=== PATIENT | female | born 1975 | race Two or more races ===

== ENCOUNTER 2024-12-17 13:05 | Inpatient (IN) | payer OTHER ==
[~2024-12-17] VITALS: Ht 157.5 cm; Wt 98.1 kg
[2024-12-17] VITALS (12 sets, daily range): BP systolic 105–135; BP diastolic 25–62; PULSE 89–105; RESP 22–41; TEMP 93.3–96.1; O2SAT 97–100
[~2024-12-17 13:05] MED LIST: HYDR-4798 PO; LISI20TA56 PO; METF-372 PO; ROSU20TA56 PO; TRAZ-227 PO; VENL150C58 PO; VENL75CA78 PO
--- NOTE | 2024-12-17 14:06 | ED.PDOC ---
Altered Mental Status HPI Comments HPI: 49 y/o F, BIBA with PMHX of DM and HTN presents to the ED for CC of ALOC / Hyperglycemia. EMS reports, patient is coming from home where she has been altered and confused a day. However she has been not eating and drinking and not taking her medications for the last four days. EMS states, that patient currently complains of left arm pain and all over body-pain. Patient denies any fall or trauma or injury. EMS, relays patient's blood sugar read HIGH on glucometer. No other PMHX, symptoms, or modifiers obtainable at this time due to patient being A&Ox3. VITALS: Temp: 92.8 AXILLARY, 92.7 ORAL BP: 130'S SYSTOLIC HR:100 RR:30 SPO2:100 Past medical history: DM, HTN Past surgical history: Denies Any Medications: Insulin, Metformin HPI: Poor Historian. Past Medical History: Past Surgical History: REVIEW OF SYSTEMS: CONSTITUTIONAL: Denies acute: fever, diaphoresis, chills, HEAD: Denies acute: headache, photophobia Eyes: Denies acute: Double vision, vision loss, eye pain, eye discharge. EARS: Denies acute: tinnitus, hearing loss, ear discharge, ear pain, THROAT: Denies acute: sore throat, swelling, difficulty swallowing , pain with swallowing, change in voice. NECK: Denies acute: neck pain, neck swelling, stiff neck. HEART: Denies acute : chest pain, palpitations, LUNGS: Denies acute: SOB, wheezing, cough, hemoptysis ABDOMEN: Denies acute: abdominal pain, Nausea, Vomiting, diarrhea, melena , hematemesis, hematochezia SKIN: Denies acute: rash, redness, lesions, itchiness. EXTREMITIES: Denies acute: calf pain, numbness, tingling, weakness, Denies acute: Low back pain. Neuro: Denies acute: focal neurological deficit, motor or sensory focal neurological d eficit, tremors, seizure like activity, dizziness, loss of bowel or bladder function, cauda equina like symptoms. : Denies acute: dysuria, hematuria, flank pain, increase in urinary frequency. PSYCH: Denies acute: hallucination, suicidal ideation, homicidal ideation. FEMALE: Denies acute: abnormal vaginal bleeding, foul odor, unusual discharge. PHYSICAL EXAM: General: --moderate------acute distress, awake and alert. Head: normocephalic, atraumatic. Neck: supple, trachea is midline, no swelling. Throat: Normal phonation. Eyes:, no erythema, no purulent discharge, no proptosis, no icterus. Heart: regular rate, regular rhythm, no significant murmur appreciated. Lungs: no apparent respiratory distress, Able to speak in full sentences. No wheezing, no rhonchi, no crackles. No stridors Clear to auscultation bilaterally. Abdomen: non tender to palpation, non distended, soft, no guarding, no rebound, + bowel sounds. Morbidly obese. Neuro: Awake, Alert, oriented to name, self, situation, follows commands Appears weak. Lethargic. Skin: no petechia, no purpura, no cyanosis, non-pale, not jaundice. Lower extremities: --trace - Pitting edema no deformity, no focal swelling, no calf TTP. Makes eye contact. moves all four extremities. Evaluation of the area of complaint of the left upper extremity. No appreciated deformity or swelling or focal tenderness to palpation or redness or bruising. Patient is neurovascularly intact in the affected extremity. Sensation and motor are present. Face: no apparent facial droop. No nuchal rigidity, Kernig's sign, Brudzinski's sign, no meningeal signs. ED COURSE: Time Seen by MD: 13:35 Reviewed Notes: Nurses Notes, Medications, Allergies Allergies: Coded Allergies: NO KNOWN ALLERGIES (Unverified , 12/17/24) Information Source: Patient, Emergency Med Personnel Mode of Arrival: EMS Severity: Moderate Timing: Days Duration: Since onset Prehospital treatment: Accucheck Quality: Decreased Alertness, Change in Behavior, Not Eating History of: Diabetes, On Insulin Associated Signs and Symptoms: None Was a procedure done? Was a procedure done?: No Differential Diagnosis (ALOC) Differential Diagnosis: Dehydration, Hypoglycemia, DKA, Encephalopathy, Meningitis, Sepsis, Hypoxemia, Seizure, Closed Head Injury, CVA, Mass Lesion, SAH, Drug Overdose, Renal Failure X-Ray, Labs, Meds, VS Vital Signs Date Time Temp Pulse Resp B/P (MAP) Pulse Ox O2 Delivery O2 Flow Rate FiO2 12/17/24 17:00 104 30 110/39 (62) 100 12/17/24 16:30 92 34 116/33 (60) 100 12/17/24 16:00 93 12/17/24 15:30 94 33 110/40 (63) 100 12/17/24 15:22 25 100 Room Air* 0 21 12/17/24 15:17 98 41 100 Room Air* 0 21 12/17/24 15:12 97.8 98 41 127/59 (81) 85 97.8 12/17/24 13:30 92.8 102 36 131/55 (80) 100 92.8 12/17/24 13:12 99 12/17/24 13:05 73 Lab Test 12/17/24 17:09 12/17/24 16:00 12/17/24 15:35 12/17/24 15:01 Range/Units POC Glucose 578 *H > 600 *H 70-106 mg/dl Lactic Acid Level 2.1 *H 0.4-2.0 mmol/L Troponin I High Sensitivity 3 L </=34 ng/L Blood Gas Specimen Type Arterial Blood Gas Sample Site Right radial Blood Gas Patient Temperature 37.0 Arterial Blood Date Drawn [id number] Arterial Blood pH 6.815 *L 7.350-7.450 Arterial Blood Partial Pressure CO2 13.5 *L 32.0-45.0 mmHg Arterial Blood Partial Pressure O2 134.4 H 83.0-108.0 mmHg Arterial Blood HCO3 2.1 L 21.0-28.0 mmol/L Arterial Blood Oxygen Saturation 97.9 94.0-98.0 % Arterial Blood Base Excess -31.4 L -2.0-3.0 mmol/L Arterial Blood Oxyhemoglobin 96.9 94.0-98.0 % Arterial Blood Carboxyhemoglobin 0.3 L 0.5-1.5 % Arterial Blood Methemoglobin 0.7 0.0-1.5 % Hayden Test Yes Blood Gas Total Hemoglobin 15.20 12.0-16.0 g/dL Blood Gas Liter Flow 0.00 Blood Gas Modality Room air FiO2 % 21.0 Blood Gas Critical Value Read Back Yes Blood Gas Notified Whom sammi Carlin Blood Gas Notified Time [id number] Blood Gas Notified By Formulation Scientist enid ashford Test 12/17/24 14:48 12/17/24 14:07 12/17/24 13:45 Range/Units Troponin I High Sensitivity 3 L 3 L </=34 ng/L POC Glucose > 600 *H 70-106 mg/dl White Blood Count 20.4 H 4.4-10.8 10^3/uL Red Blood Count 4.81 4.0-5.20 10^6/uL Hemoglobin 14.6 12.2-16.2 g/dL Hematocrit 48.1 H 36.0-46.0 % Mean Corpuscular Volume 100.2 H 80.0-100.0 fL Mean Corpuscular Hemoglobin 30.5 28.0-32.0 pg Mean Corpuscular Hemoglobin Concent 30.4 L 32.0-36.0 g/dL Red Cell Distribution Width 13.9 11.8-14.3 % Platelet Count 383 140-450 10^3/uL Mean Platelet Volume 8.4 6.9-10.8 fL Neutrophils (%) (Auto) 78.7 37.0-80.0 % Lymphocytes (%) (Auto) 13.1 10.0-50.0 % Monocytes (%) (Auto) 7.1 0.0-12.0 % Eosinophils (%) (Auto) 0.1 0.0-7.0 % Basophils (%) (Auto) 1.0 0.0-2.0 % Neutrophils # (Auto) 16.0 H 1.6-8.6 10 ^3/uL Lymphocytes # (Auto) 2.7 0.4-5.4 10 ^3/uL Monocytes # (Auto) 1.5 H 0-1.3 10 ^3/uL Eosinophils # (Auto) 0 0-0.8 10 ^3/uL Basophils # (Auto) 0.2 0-0.2 10 ^3/uL Nucleated Red Blood Cells 0.1 % Sodium Level 127 L 136-145 mmol/L Potassium Level 6.4 *H 3.5-5.1 mmol/L Chloride Level 102 98-107 mmol/L Carbon Dioxide Level < 10 *L 20-31 mmol/L Anion Gap 15.20843 H 5-15 Blood Urea Nitrogen 26 H 9-23 mg/dL Creatinine 1.33 H 0.550-1.02 mg/dL Glomerular Filtration Rate Calc 49 >90 mL/min BUN/Creatinine Ratio 19.5 10.0-20.0 Serum Glucose 642 *H 74-106 mg/dL Serum Osmolality 332 H 278-298 mOsm/kg Lactic Acid Level 2.3 *H 0.4-2.0 mmol/L Calcium Level 8.4 L 8.7-10.4 mg/dL Phosphorus Level 5.0 2.4-5.1 mg/dL Magnesium Level 2.1 1.6-2.6 mg/dL Total Bilirubin 0.2 0.2-1.0 mg/dL Aspartate Amino Transferase (AST) 50 H 13-40 U/L Alanine Aminotransferase (ALT) 42 H 7-40 U/L Alkaline Phosphatase 123 H 46-116 U/L B-Type Natriuretic Peptide 11.22 0-100 pg/mL Total Protein 6.4 5.7-8.2 g/dL Albumin 4.2 3.2-4.8 g/dL Lipase 38 12-53 U/L Beta-Hydroxybutyric Acid > 4.500 H < 0.4 mmol/L Current Medications Medications (Trade) Dose Ordered Sig/Danny Route Start Time Stop Time Status Last Admin Insulin Human Regular (InsuLIN R) 5 units ONCE ONCE IV 12/17/24 14:30 12/17/24 14:31 DC 12/17/24 15:36 Piperacillin Sod/ Tazobactam Sod 100 ml @ 100 mls/hr ONCE ONCE IV 12/17/24 14:45 12/17/24 15:44 DC 12/17/24 17:08 Sodium Chloride 1,000 ml @ 1,000 mls/hr Q1H ONCE IV 12/17/24 14:45 12/17/24 15:44 DC 12/17/24 16:35 Sodium Bicarbonate 100 ml ONCE ONCE IV 12/17/24 15:00 12/17/24 15:31 DC 12/17/24 17:02 Insulin Human (Reg)/Sodium Chloride 100 ml @ 0.5 mls/hr Q24H IV 12/17/24 15:15 12/17/24 18:17 DC 12/17/24 15:56 Diagnostic Test (Pha) (Accu-Chek Comfort Curve T) 1 strip Q90MIN 12/17/24 16:30 12/17/24 21:06 [place] [id number] Ph: [phone] DIAGNOSTIC IMAGING Diagnostic Imaging Report : [id number] Signed PATIENT: TEENA VERNON ACCT: [id number] UNIT: [id number] : 1975 LOC: ER ROOM / BED: / AGE / SEX: 49 / F ADM STATUS: REG ER SERVICE 1328 ORDERING PHYSICIAN: EMILY CHIRINOS DO PROCEDURE(s): LUDVT - LT Upper DVT REASON: pain ORDER NUMBER(s): [id number], ACCESSION NUMBER(s): [id number] LEFT Upper Extremity Venous Duplex Clinical History: pain Comparison: None Findings: Duplex Doppler evaluation of the venous system of the LEFT lower neck and upper extremity including color Doppler and spectral/pulsed waveform analysis was performed. The internal jugular vein demonstrates appropriate compressibility and waveform variability. The subclavian vein is patent on color Doppler evaluation without intraluminal thrombus and demonstrates waveform variability. The visualized portion of the brachiocephalic vein is patent on color Doppler evaluation without intraluminal thrombus and demonstrates waveform variability. The axillary vein demonstrates appropriate compressibility and waveform variability. The brachial veins demonstrate appropriate compressibility and patency on Doppler evaluation. The basilic vein demonstrates appropriate compressibility and patency on Doppler evaluation. The cephalic vein demonstrates appropriate compressibility and patency on Doppler evaluation. Impression: No venous thrombus identified in the LEFT upper extremity vessels evaluated above. If clinical concern/symptoms persist or worsen, short-interval follow-up study is suggested. ATED BY: OSMAN SHIN MD DICTATED DATE/TIME: 12/17/24 1443 SIGNED BY: OSMAN SIHN MD SIGNED DATE/TIME: 12/17/24 144 CC: [place] [id number] Ph: [phone] DIAGNOSTIC IMAGING Diagnostic Imaging Report : [id number] Signed PATIENT: TEENA VERNON ACCT: [id number] UNIT: [id number] : 1975 LOC: OVERFLOW ROOM / BED: 1009-RACHEL / A AGE / SEX: 49 / F ADM STATUS: ADM IN SERVICE 1328 ORDERING PHYSICIAN: EMILY CHIRINOS DO PROCEDURE(s): CXRP - CHEST PORTABLE REASON: weak ORDER NUMBER(s): [id number], ACCESSION NUMBER(s): [id number] CHEST RADIOGRAPH Indication: weak Technique: Single frontal view of the chest was obtained COMPARISON: None FINDINGS: Lines and Tubes: None Lungs: Low lung volumes Pleura: No effusion. No pneumothorax. Cardiomediastinal contours: Unremarkable Bones: Unremarkable IMPRESSION: Low lung volumes ATED BY: CHINEDU PLUMMER MD DICTATED DATE/TIME: 12/17/242110 SIGNED BY: CHINEDU PLUMMER MD SIGNED DATE/TIME: 12/17/242110 CC: Time of 1ST Reevaluation: 14:05 Reevaluation 1ST: Unchanged Time of 2ND Reevaluation: 22:47 Reevaluation 2ND: Improved Patient Education/Counseling: Other Family Education/Counseling: Other Comments Patient presented with the above HPI.--hyperglycemia/ALOC----workup was initiated. patient was found with the above mentioned diagnosis. the following medications were ordered: please refer to order lists of meds and tests obtained by myself Dr. Chirinos. Patient ED course and VS have been stabilized. Patient has been reassessed in the ED and remained in a stable condition. Pertinent incidental findings were discussed with the patient and/or family. Patient/family voices understanding and is agreeable with plan. Patient has been observed in the ED adequate length of time to insure improvement/stability. Escalation of care considered: Consideration of escalation to observation or admission Patient was found in DKA. DKA protocol was initiated. Hyperkalemia protocol was initiated. Patient was ADMITTED to the medicine team for further evaluation and treatment of their presentation. Sepsis protocol was initiated with fluid resuscitation as well. All the reports of any imaging studies that were ordered by myself were reviewed by myself. Departure 1 Departure Time of Disposition: 15:04 Impression: Primary Impression: DKA (diabetic ketoacidosis) Additional Impressions: Leukocytosis Hyperkalemia Disposition: ADMITTED INPATIENT Admit to: ICU Condition: Critical Discharged With: Self Critical Care Note Critical Care Time?: Yes (1 hr-critical care time only) Heart Score Heart Score: Heart Score Response (Comments) Value History Slightly Suspicious 0 EKG Normal 0 Age 45-64 1 Risk Factors >3 or Hx ASHD 2 Troponin Normal limit 0 Total 3 I personally scribed for EMILY CHIRINOS DO ([email or web address]) on 12/17/24 at 14:06. Electronically submitted by Brii Keene ([email or web address]). I personally scribed for EMILY CHIRINOS DO ([email or web address]) on 12/17/24 at 14:07. Electronically submitted by Brii Keene ([email or web address]). I personally scribed for EMILY CHIRINOS DO ([email or web address]) on 12/17/24 at 19:37. El ectronically submitted by Brii Keene ([email or web address]). EMILY CHIRINOS DO Dec 17, 2024 14:06
[2024-12-17 14:14] LABS: Eosinophils # (auto) 0 10 ^3/uL (0-0.8); Lymphocytes # (auto) 2.7 10 ^3/uL (0.4-5.4); Nucleated Red Blood Cells % 0.1 %
[2024-12-17 14:16] LABS: Basophils # (auto) 0.2 10 ^3/uL (0-0.2); Eosinophils % (auto) 0.1 % (0.0-7.0); Hematocrit 48.1 % (36.0-46.0); Hemoglobin 14.6 g/dL (12.2-16.2); Lymphocytes % (auto) 13.1 % (10.0-50.0); Mean Corpuscular Hemoglobin 30.5 pg (28.0-32.0); Mean Corpuscular Hgb Conc. 30.4 g/dL (32.0-36.0); Mean Corpuscular Volume 100.2 fL (80.0-100.0); Monocytes # (auto) 1.5 10 ^3/uL (0-1.3); Monocytes % (auto) 7.1 % (0.0-12.0); Neutrophils % (auto) 78.7 % (37.0-80.0); Platelet Count (auto) 383 10^3/uL (140-450); Red Blood Cells 4.81 10^6/uL (4.0-5.20); Red Cell Distribution Width 13.9 % (11.8-14.3); White Blood Cell 20.4 10^3/uL (4.4-10.8)
[2024-12-17 14:26] LABS: Albumin 4.2 g/dL (3.2-4.8); Anion Gap 15.00001 (5-15); BUN/Creatinine Ratio 19.5 (10.0-20.0); Chloride 102 mmol/L (98-107); Lipase 38 U/L (12-53); Magnesium 2.1 mg/dL (1.6-2.6); Total Protein 6.4 g/dL (5.7-8.2)
[2024-12-17] MEDS ORDERED: SODIUM CHLORIDE 0.9% 1,000 ML IV ONE (14:30)
--- NOTE | 2024-12-17 14:46 | DVH ---
LEFT Upper Extremity Venous Duplex Clinical History: pain Comparison: None Findings: Duplex Doppler evaluation of the venous system of the LEFT lower neck and upper extremity including c olor Doppler and spectral/pulsed waveform analysis was performed. The internal jugular vein demonstrates appropriate compressibility and waveform variability. The subclavian vein is patent on color Doppler evaluation without intraluminal thrombus and demonstra natasha waveform variability. The visualized portion of the brachiocephalic vein is patent on color Doppler evaluation without intr aluminal thrombus and demonstrates waveform variability. The axillary vein demonstrates appropriate compressibility and waveform variability. The brachial veins demonstrate appropriate compressibility and patency on Doppler evaluation. The basilic vein demonstrates appropriate compressibility and patency on Doppler evaluation. The cephalic vein demonstrates appropriate compressibility and patency on Doppler evaluation. Impression: No venous thrombus identified in the LEFT upper extremity vessels evaluated above. If clinical concern/symptoms persist or worsen, short-interval follow-up study is suggested.
[2024-12-17 14:57] LABS: Alanine Aminotransferase 42 U/L (7-40); Alkaline Phosphatase 123 U/L (46-116); Aspartate Aminotransferase 50 U/L (13-40); Bilirubin, Total 0.2 mg/dL (0.2-1.0); Blood Urea Nitrogen 26 mg/dL (9-23); Calcium 8.4 mg/dL (8.7-10.4); Lactic Acid w/Reflex 2.3 mmol/L (0.4-2.0); Sodium 127 mmol/L (136-145)
[2024-12-17 15:01] LABS: Carbon Dioxide < 10 mmol/L (20-31); Glucose 642 mg/dL (74-106); Potassium 6.4 mmol/L (3.5-5.1)
[2024-12-17] MEDS ORDERED: DEXTROSE (50%) 50ML SYRG IV PRN (15:15)
[2024-12-17 15:21] LABS: Base Excess -31.4 mmol/L (-2.0-3.0)
[2024-12-17] MEDS: ALBUTEROL SULF 2.5 MG/0.5ML(0.5%) NEB SOLN ONE (15:22)
[2024-12-17] MEDS: InsuLIN REG 1unit/0.01ml Soln (100units/ml) IV ONE (15:36)
[2024-12-17] MEDS: ALBUTEROL SULF 2.5 MG/0.5ML(0.5%) NEB SOLN NEB ONE (15:39)
[2024-12-17] MEDS: INSULIN DRIP 100 UNIT/100ML 100 ML IV SCH ×4 (15:56→22:45)
[2024-12-17] MEDS: SODIUM CHLORIDE 0.9% 1,000 ML IV ONE ×2 (16:35→18:41)
[2024-12-17] MEDS: SODIUM BICARB 8.4% 50Meq/50ml SYR Vial IV ONE (17:02)
[2024-12-17] MEDS: PIPERACILLIN-TAZOB 3.375GM 100 ML IV ONE (17:08)
[2024-12-17] MEDS: ACCU-CHEK COMFORT CURVE STRIP VI SCH (17:12)
[2024-12-17] MEDS ORDERED: MORPHINE SULFATE INJ 2 MG/ml SYRG IV PRN (17:45)
[2024-12-17] MEDS ORDERED: NITROGLYCERIN 0.4 MG SL TAB SL PRN (17:45)
--- NOTE | 2024-12-17 18:00 | DVHHP2 ---
History of Present Illness Reason for Visit: Altered mental status History of Present Illness Patient was a 49-year-old female presenting to the emergency room with altered mental status. According to the patient's family was bedside, the patient has not been feeling good for the past several days including generalized weakness, in addition to not eating well as well as not taking her insulin because she has been eating well. Today they found her with severe tachypnea, altered mental status which prompted them to bring her to the hospital. Patient at this time continues to have altered mental status, but does track to voice, and nods to simple commands. The family is unable to report any other symptoms. Significant history of the patient includes juvenile diabetes mellitus, in addition to the family stating she was never been hospitalized for diabetic ketoacidosis. She also has a history of depression, heart murmur, fibromyalgia, and peripheral neuropathy. Cardiovascular: HTN, hyperipidemia Psych: Depression Rheumatologic: Fibromyalgia Endocrine: Diabetes Past Surgical History: None Family History: None Smoke: No ALCOHOL: none Lives: with Family Review of Systems Review of Systems Patient unable to provide information. Review of symptoms provided to the best of their ability by family who was bedside. Constitutional: Yes: Weakness Eyes: No: Pain, Vision change, Conjunctivae inflammation, Eyelid inflammation, Other, Redness Respiratory: No: Cough, Dry, Shortness of breath, SOB with excertion, Wheezing, Hemoptysis, Pleuritic Pain, Sputum, Wheezing, Other Cardiovascular: No: Chest Pain, Palpitations, Orthopnea, Paroxysmal Noc. Dyspnea, Edema, Lt Headedness, Other Gastrointestinal: No: Nausea, Vomiting, Abdominal Pain, Diarrhea, Constipation, Melena, Hematochezia, Other Genitourinary: No Dysuria, No Frequency, No Incontinence, No Hematuria, No Retention, No Other Musculoskeletal: No: other, neck pain, shoulder pain, arm pain, back pain, hand pain, leg pain, foot pain Skin: No: Rash, Lesions, Jaundice, Bruising, Other Allergies: Coded Allergies: NO KNOWN ALLERGIES (Unverified , 12/17/24) Medications Current Medications Medications Dose Ordered Sig/Danny Route Start Time Stop Time Status Last Admin Dose Admin Insulin Human (Reg)/Sodium Chloride 100 ml @ 0.5 mls/hr Q24H IV 12/17/24 15:15 12/17/24 15:56 6 MLS/HR Dextrose 50 ml UD PRN IV 12/17/24 15:15 Diagnostic Test (Pha) 1 strip Q90MIN 12/17/24 16:30 12/17/24 17:12 1 STRIP Nitroglycerin 0.4 mg Q5MINP PRN SL 12/17/24 17:45 UNV Morphine Sulfate 2 mg Q30M PRN IV 12/17/24 17:45 UNV Sodium Bicarbonate 50 ml/ Sodium Chloride 1,050 ml @ 125 mls/hr Q8H24M IV 12/17/24 17:45 UNV Piperacillin Sod/ Tazobactam Sod 100 ml @ 25 mls/hr Q8HR IV 12/17/24 22:00 UNV Exam Vital Signs Vital Signs Date Time Temp Pulse Resp B/P (MAP) Pulse Ox O2 Delivery O2 Flow Rate FiO2 12/17/24 15:22 25 100 Room Air* 0 21 12/17/24 13:30 92.8 102 131/55 (80) 92.8 General Appearance: severe distress, Other (Encephalopathic) HEENT: Atraumatic, PERRLA Respiratory: Clear to auscultation, Normal air movement, Other (Tachypneic) Cardiovascular: Normal S1, Normal S2 Extremities: No clubbing, No cyanosis, No edema, Normal pulses, No tenderness/swelling Skin: No rashes, No breakdown, No significant lesion Neuro: Other (Unable to assess) Psych/Mental Status: Other (Altered mental status, unable to assess) Labs/Xrays Labs Test 12/17/24 17:09 12/17/24 16:00 12/17/24 15:01 12/17/24 13:45 Range/Units POC Glucose 578 *H 70-106 mg/dl Lactic Acid Level 2.1 *H 0.4-2.0 mmol/L Troponin I High Sensitivity 3 L </=34 ng/L Blood Gas Specimen Type Arterial Blood Gas Sample Site Right radial Blood Gas Patient Temperature 37.0 Arterial Blood Date Drawn [id number] Arterial Blood pH 6.815 *L 7.350-7.450 Arterial Blood Partial Pressure CO2 13.5 *L 32.0-45.0 mmHg Arterial Blood Partial Pressure O2 134.4 H 83.0-108.0 mmHg Arterial Blood HCO3 2.1 L 21.0-28.0 mmol/L Arterial Blood Oxygen Saturation 97.9 94.0-98.0 % Arterial Blood Base Excess -31.4 L -2.0-3.0 mmol/L Arterial Blood Oxyhemoglobin 96.9 94.0-98.0 % Arterial Blood Carboxyhemoglobin 0.3 L 0.5-1.5 % Arterial Blood Methemoglobin 0.7 0.0-1.5 % Hayden Test Yes Blood Gas Total Hemoglobin 15.20 12.0-16.0 g/dL Blood Gas Liter Flow 0.00 Blood Gas Modality Room air FiO2 % 21.0 Blood Gas Critical Value Read Back Yes Blood Gas Notified Whom sammi Carlin Blood Gas Notified Time [id number] Blood Gas Notified By Pull Over enid ashford White Blood Count 20.4 H 4.4-10.8 10^3/uL Red Blood Count 4.81 4.0-5.20 10^6/uL Hemoglobin 14.6 12.2-16.2 g/dL Hematocrit 48.1 H 36.0-46.0 % Mean Corpuscular Volume 100.2 H 80.0-100.0 fL Mean Corpuscular Hemoglobin 30.5 28.0-32.0 pg Mean Corpuscular Hemoglobin Concent 30.4 L 32.0-36.0 g/dL Red Cell Distribution Width 13.9 11.8-14.3 % Platelet Count 383 140-450 10^3/uL Mean Platelet Volume 8.4 6.9-10.8 fL Neutrophils (%) (Auto) 78.7 37.0-80.0 % Lymphocytes (%) (Auto) 13.1 10.0-50.0 % Monocytes (%) (Auto) 7.1 0.0-12.0 % Eosinophils (%) (Auto) 0.1 0.0-7.0 % Basophils (%) (Auto) 1.0 0.0-2.0 % Neutrophils # (Auto) 16.0 H 1.6-8.6 10 ^3/uL Lymphocytes # (Auto) 2.7 0.4-5.4 10 ^3/uL Monocytes # (Auto) 1.5 H 0-1.3 10 ^3/uL Eosinophils # (Auto) 0 0-0.8 10 ^3/uL Basophils # (Auto) 0.2 0-0.2 10 ^3/uL Nucleated Red Blood Cells 0.1 % Sodium Level 127 L 136-145 mmol/L Potassium Level 6.4 *H 3.5-5.1 mmol/L Chloride Level 102 98-107 mmol/L Carbon Dioxide Level < 10 *L 20-31 mmol/L Anion Gap 15.52928 H 5-15 Blood Urea Nitrogen 26 H 9-23 mg/dL Creatinine 1.33 H 0.550-1.02 mg/dL Glomerular Filtration Rate Calc 49 >90 mL/min BUN/Creatinine Ratio 19.5 10.0-20.0 Serum Glucose 642 *H 74-106 mg/dL Serum Osmolality 332 H 278-298 mOsm/kg Calcium Level 8.4 L 8.7-10.4 mg/dL Phosphorus Level 5.0 2.4-5.1 mg/dL Magnesium Level 2.1 1.6-2.6 mg/dL Total Bilirubin 0.2 0.2-1.0 mg/dL Aspartate Amino Transferase (AST) 50 H 13-40 U/L Alanine Aminotransferase (ALT) 42 H 7-40 U/L Alkaline Phosphatase 123 H 46-116 U/L B-Type Natriuretic Peptide 11.22 0-100 pg/mL Total Protein 6.4 5.7-8.2 g/dL Albumin 4.2 3.2-4.8 g/dL Lipase 38 12-53 U/L Assessment/Plan Assessment/Plan Impression: -diabetic ketoacidosis -severe metabolic acidosis -acute kidney injury, vasomotor nephropathy -leukocytosis, rule out sepsis -obesity -depression -dyslipidemia -peripheral neuropathy -hyperkalemia Plan: -admit to ICU -IV hydration -sodium bicarbonate drip -empiric antibiotic therapy with Zosyn -blood in urine culture -urinalysis -insulin drip -check magnesium, phos -BMP q.6 hours -check Depakote level -UDS -repeat VBG this evening and in a.m. -plan of care discussed with patient's family were bedside as well as primary nurse. All questions answered. Critical care time spent with patient discussing and formulating plan of care: 90 minutes. This does not include time spent performing procedures. This medical document was created using an electronic medical record system with [employer] dictation system. Although this document has been carefully reviewed, there may still be some phonetic and typographical errors. These areas are purely typographical due to imperfections of the software programs, and do not reflect any compromise in the patient's medical care. Plan discussed with: Patient, Other (RN) My Orders Orders - MARCEL RUFFIN NP Procedure Category Date Status Time Admit ADMIT 12/17/24 Transmitted 17:41 Nitroglycerin PHA 12/17/24 Logged Sublingual (Ntrostat 17:45 Morphine Sulfate PHA 12/17/24 Logged Injection 17:45 Stat Ekg For Chest JAVIER 12/17/24 In Process Pain 17:41 Notify Md Of Changes JAVIER 12/17/24 In Process From Base 17:41 Drying Tumbler Operator For JAVIER 12/17/24 In Process 24 Hours 17:41 Emergency Dysrhythmia JAVIER 12/17/24 In Process Protocol 17:41 Rhythm Strips Once JAVIER 12/17/24 In Process Every Shift 17:41 Oxygen By Nasal RT 12/17/24 Transmitted Cannula 17:41 Sodium Chloride 0.9% PHA 12/17/24 Logged 17:45 Sod Chl 0.45% PHA 12/17/24 Logged (Sodi... W/Sodium 17:45 Phosphorus LAB 12/17/24 Logged 17:41 Magnesium LAB 12/17/24 Logged 17:41 Basic Metabolic Panel LAB 12/17/24 Logged 19:00 Basic Metabolic Panel LAB 12/18/24 Verified 01:00 Basic Metabolic Panel LAB 12/18/24 Verified 07:00 Basic Metabolic Panel LAB 12/18/24 Verified 13:00 Urinalysis LAB 12/17/24 Logged 17:41 Valproic Acid LAB 12/17/24 Logged (Depakene) 17:41 Drug Screen LAB 12/17/24 Logged 17:41 Urine Bacterial JANIE 12/17/24 Logged Culture 17:41 Insert Schafer Catheter JAVIER 12/17/24 In Process 17:41 Venous Blood Gas RT 12/17/24 Logged 19:00 Venous Blood Gas RT 12/18/24 Logged 04:00 Magnesium LAB 12/18/24 Verified 04:00 Phosphorus LAB 12/18/24 Verified 04:00 Piperacillin-Tazob PHA 12/17/24 Logged 3.375gm (Zosyn 3.375g 22:00 Date of Service: Dec 17, 2024 Billing Provider: MARCEL RUFFIN NP Common Visit Codes: 40752-[id number] CARE 30-74 MIN, [id number]-[id number] CARE-EACH +30MIN MARCEL RUFFIN NP Dec 17, 2024 18:00
[2024-12-17] MEDS: FUROSEMIDE 20 MG/2 ML VIAL IV ONE (19:01)
[2024-12-17 19:14] LABS: Chloride 104 mmol/L (98-107); Potassium 4.9 mmol/L (3.5-5.1)
[2024-12-17 19:15] LABS: Anion Gap 15.00001 (5-15)
[2024-12-17 19:20] LABS: BUN/Creatinine Ratio 18.7 (10.0-20.0)
[2024-12-17 19:32] LABS: Magnesium 1.9 mg/dL (1.6-2.6)
[2024-12-17 19:34] LABS: Phosphorus 4.1 mg/dL (2.4-5.1)
[2024-12-17 19:36] LABS: Blood Urea Nitrogen 26 mg/dL (9-23); Calcium 7.5 mg/dL (8.7-10.4); Sodium 129 mmol/L (136-145)
[2024-12-17 19:37] LABS: Urine Bacteria FEW /hpf (None Seen); Urine Blood Negative /uL (Negative); Urine Budding Yeast OCCASIONAL /hpf (None Seen); Urine Clarity Clear (Clear); Urine Color Light-Yellow (Yellow); Urine Protein, UAD 1+ (Negative); Urine Specific Gravity 1.017 (1.001-1.035); Urine Squamous Epithelial Cell FEW /hpf (<5); Urine Urobilinogen Normal (Negative); Urine WBC < 1 /HPF (0-5)
[2024-12-17 19:43] LABS: Carbon Dioxide < 10 mmol/L (20-31); Glucose 613 mg/dL (74-106)
[2024-12-17 19:44] LABS: Amphetamine Screen, Urine Neg (NEGATIVE); Barbiturate Scree,Urine Neg (NEGATIVE); Benzodiazephine Screen, Urine Neg (NEGATIVE); Cannabinoid Screen, Urine Neg (NEGATIVE); Cocaine Screen, Urine Neg (NEGATIVE); Opiate Scree,Urine Neg (NEGATIVE); Phencyclidine Screen, Urine Neg (NEGATIVE)
[2024-12-17] MEDS: SODIUM BICARB 50mEq/50ml Vial 50 ML in SOD CHL 0.45% 1,000 ML IV SCH (20:30)
--- NOTE | 2024-12-17 21:13 | DVH ---
CHEST RADIOGRAPH Indication: weak Technique: Single frontal view of the chest was obtained COMPARISON: None FINDINGS: Lines and Tubes: None Lungs: Low lung volumes Pleura: No effusion. No pneumothorax. Cardiomediastinal contours: Unremarkable Bones: Unremarkable IMPRESSION: Low lung volumes
[2024-12-17 22:06] LABS: Urine Bacteria None Seen /hpf (None Seen)
--- NOTE | 2024-12-17 22:09 | ECG ---
[facility] Test Date: 2024-12-17 Test Time: 13:12:42 Pat Name: TEENA VERNON Department: ED Room: [address] [place] [address] Gender: F Label Rewinder: pooja : 1975 Requested By: EMILY CHIRINOS Order Number: [id number] Reading MD: John Roman Measurements Intervals [place] Rate: 99 P: 49 IN: 172 QRS: -22 QRSD: 100 T: 56 QT: 383 QTc: 492 Interpretive Statements Sinus rhythm Borderline left axis deviation Low voltage, precordial leads Probable anteroseptal infarct, old Baseline wander in lead(s) II,III,aVF,V2 Electronically Signed On 12-18-2024 22:13:42 PDT by John Roman Please click the below link to view image of tracing.
[2024-12-17 23:00] LABS: Urine Blood Negative /uL (Negative); Urine Clarity Clear (Clear); Urine Color Light-Yellow (Yellow); Urine Protein, UAD 1+ (Negative); Urine Specific Gravity 1.017 (1.001-1.035); Urine Squamous Epithelial Cell None Seen /hpf (<5); Urine Urobilinogen Normal (Negative)
[2024-12-17 23:05] LABS: Opiate Scree,Urine Neg (NEGATIVE); Urine WBC < 1 /HPF (0-5)
[2024-12-17 23:06] LABS: Amphetamine Screen, Urine Neg (NEGATIVE); Barbiturate Scree,Urine Neg (NEGATIVE); Benzodiazephine Screen, Urine Neg (NEGATIVE); Cannabinoid Screen, Urine Neg (NEGATIVE); Cocaine Screen, Urine Neg (NEGATIVE); Phencyclidine Screen, Urine Neg (NEGATIVE)
[2024-12-17] MEDS: PIPERACILLIN-TAZOB 3.375GM 100 ML IV SCH (23:55)
[2024-12-18] VITALS (49 sets, daily range): BP systolic 101–194; BP diastolic 40–73; PULSE 95–116; RESP 14–44; TEMP 96.4–100.2; O2SAT 95–99
[2024-12-18 02:26] LABS: Chloride 106 mmol/L (98-107); Potassium 4.1 mmol/L (3.5-5.1)
[2024-12-18 02:27] LABS: Anion Gap 16.00001 (5-15)
[2024-12-18 02:31] LABS: Calcium 8.3 mg/dL (8.7-10.4); Sodium 132 mmol/L (136-145)
[2024-12-18 02:32] LABS: BUN/Creatinine Ratio 18.4 (10.0-20.0); Carbon Dioxide < 10 mmol/L (20-31)
[2024-12-18 02:33] LABS: Blood Urea Nitrogen 35 mg/dL (9-23); Glucose 306 mg/dL (74-106)
[2024-12-18] MEDS: SODIUM BICARB 8.4% 50Meq/50ml SYR Vial IV ONE ×2 (03:56→04:57)
[2024-12-18] MEDS: ONDANSETRON HCL 4 MG/2 ML VIAL ONE (03:59)
[2024-12-18] MEDS: SODIUM BICARB IV SCH (04:40)
[2024-12-18] MEDS: LACTATED RINGERS IV SCH (04:40)
[2024-12-18] MEDS: D5 IV SCH (04:40)
[2024-12-18 04:42] LABS: Calcium 8.8 mg/dL (8.7-10.4); Chloride 107 mmol/L (98-107); Potassium 4.1 mmol/L (3.5-5.1)
[2024-12-18 04:43] LABS: Anion Gap 16.00001 (5-15)
[2024-12-18] MEDS: LACTATED RINGER'S 1,000 ML IV ONE (04:45)
[2024-12-18 04:48] LABS: BUN/Creatinine Ratio 16.7 (10.0-20.0)
[2024-12-18 04:49] LABS: Magnesium 1.7 mg/dL (1.6-2.6)
[2024-12-18 04:49] LABS: Base Excess -15.7 mmol/L (-2.0-3.0)
[2024-12-18 04:50] LABS: Blood Urea Nitrogen 34 mg/dL (9-23); Glucose 225 mg/dL (74-106); Sodium 133 mmol/L (136-145)
[2024-12-18 04:53] LABS: Carbon Dioxide < 10 mmol/L (20-31)
[2024-12-18 04:56] LABS: Phosphorus 1.2 mg/dL (2.4-5.1)
[2024-12-18] MEDS: ONDANSETRON HCL 4 MG/2 ML VIAL IV PRN (04:59)
--- NOTE | 2024-12-18 05:40 | DVH ---
EXAM: XR Chest, 1 View CLINICAL INDICATION: SOB TECHNIQUE: Frontal view of the chest. COMPARISON: XY CHEST PORTABLE on DOS: 12/17/24 FINDINGS: LUNGS AND PLEURAL SPACES: Pulmonary venous congestion. No consolidation. No pneumothorax. HEART: Unremarkable. No cardiomegaly. MEDIASTINUM: Unremarkable. Normal mediastinal contour. BONES/JOINTS: Unremarkable. No acute fracture. OTHER FINDINGS: . IMPRESSION: Pulmonary venous congestion.
--- NOTE | 2024-12-18 07:46 | DVHPN2 ---
Subjective Patient still has encephalopathy. Denies any symptoms at this time. Reviewed: Care Plan, H&P, Labs, Medications, Previous Orders Changes from previous H/P or p: No Changes General: Per HPI Eyes: No Pain, No Vision change, No Conjunctivae inflammation, No Eyelid inflammation, No Other, No Redness Cardiovascular: No Chest Pain, No Palpitations, No Orthopnea, No Paroxysmal Noc. Dyspnea, No Edema, No Lt Headedness, No Other Respiratory: No Cough, No Dry, No Shortness of breath, No SOB with excertion, No Wheezing, No Hemoptysis, No Pleuritic Pain, No Sputum, No Other Gastrointestinal: No Nausea, No Vomiting, No Abdominal Pain, No Diarrhea, No Constipation, No Melena, No Hematochezia, No Other Genitourinary: No Dysuria, No Frequency, No Incontinence, No Hematuria, No Retention, No Other Musculoskeletal: No other, No neck pain, No shoulder pain, No arm pain, No back pain, No hand pain, No leg pain, No foot pain Skin: No Rash, No Lesions, No Jaundice, No Bruising, No Other Objective Vitals Vital Signs Date Time Temp Pulse Resp B/P (MAP) Pulse Ox O2 Delivery O2 Flow Rate FiO2 12/18/24 06:30 99.1 111 29 126/56 (79) 98 210.4 12/18/24 06:00 Room Air* 0 21 Intake/Output Intake and Output 12/18/24 07:00 Intake Total 2347.6 ml Output Total 1120 ml Balance 1227.6 ml Intake Oral 100 ml IV Total 2247.6 ml Output Urine Total 1120 ml General Appearance: Alert, mild distress, Other (Oriented x2) HEENT: Atraumatic, PERRLA Lungs: Clear to auscultation, Normal air movement Cardiovascular: Normal S1, Normal S2, Other (Sinus tachycardia) Abdomen: Normal bowel sounds Genitourinary: No Apparent Abnormalities (Schafer catheter) Musculoskeletal: Normal sensory function, Normal motor function Skin: Dry, Intact Psych/Mental Status: Mood NL (Withdrawn) Medications Current Medications Medications Dose Ordered Sig/Danny Route Start Time Stop Time Status Last Admin Dose Admin Dextrose 50 ml UD PRN IV 12/17/24 15:15 Diagnostic Test (Pha) 1 strip Q90MIN 12/17/24 16:30 12/18/24 07:31 1 STRIP Nitroglycerin 0.4 mg Q5MINP PRN SL 12/17/24 17:45 Morphine Sulfate 2 mg Q30M PRN IV 12/17/24 17:45 Piperacillin Sod/ Tazobactam Sod 100 ml @ 25 mls/hr Q8H IV 12/18/24 00:00 12/17/24 23:55 25 MLS/HR Insulin Human (Reg)/Sodium Chloride 100 ml @ 2 mls/hr Q24H IV 12/17/24 22:45 12/18/24 03:48 8 MLS/HR Ondansetron HCl 4 mg Q6HPRN PRN IV 12/18/24 04:00 12/18/24 04:59 4 MG Sodium Bicarbonate 100 ml/Dextrose/ Lactated Ringer's 1,100 ml @ 125 mls/hr Q8H48M IV 12/18/24 04:00 12/18/24 04:40 125 MLS/HR Laboratory Results Laboratory Tests 12/17/24 13:45 12/18/24 04:15 Chemistry Test 12/17/24 13:45 12/17/24 18:54 12/18/24 02:00 12/18/24 04:15 Albumin 4.2 g/dL (3.2-4.8) Calcium Level 8.4 mg/dL (8.7-10.4) L 7.5 mg/dL (8.7-10.4) L 8.3 mg/dL (8.7-10.4) L 8.8 mg/dL (8.7-10.4) Magnesium Level 2.1 mg/dL (1.6-2.6) 1.9 mg/dL (1.6-2.6) 1.7 mg/dL (1.6-2.6) Phosphorus Level 5.0 mg/dL (2.4-5.1) 4.1 mg/dL (2.4-5.1) 1.2 mg/dL (2.4-5.1) L Total Protein 6.4 g/dL (5.7-8.2) Lipid panel Test 12/17/24 13:45 Lipase 38 U/L (12-53) Cardiac Markers Test 12/17/24 13:45 B-Type Natriuretic Peptide 11.22 pg/mL (0-100) LFT Test 12/17/24 13:45 Alanine Aminotransferase (ALT) 42 U/L (7-40) H Alkaline Phosphatase 123 U/L (46-116) H Aspartate Amino Transferase (AST) 50 U/L (13-40) H Total Bilirubin 0.2 mg/dL (0.2-1.0) Urinalysis Test 12/17/24 18:38 Urine Color Light-yellow (Yellow) Urine Clarity Clear (Clear) Urine pH 5.0 (5.0-9.0) Urine Specific [place] 1.017 (1.001-1.035) Urine Protein 1+ (Negative) H Urine Ketones 3+ (Negative) H Urine Blood Negative /uL (Negative) Urine Nitrite Negative (Negative) Urine Bilirubin Negative (Negative) Urine Urobilinogen Normal mg/dL (Negative) Urine Leukocyte Esterase Negative /uL (Negative) Urine RBC <1 /hpf (0 - 4) Urine Microscopic WBC < 1 /HPF (0-5) Urine Squamous Epithelial Cells Few /hpf (<5) Urine Bacteria Few /hpf (None Seen) H Urine Yeast (Budding) Occasional /hpf (None Urine Glucose 4+ mg/dL (Normal) H Urine Test Negative (Negative) Blood Gas Results Test 12/17/24 15:01 12/18/24 04:21 12/18/24 04:35 Arterial Blood pH 6.815 (7.350-7.450) 7.213 (7.350-7.450) FiO2 % 21.0 21.0 21.0 Labs and/or images reviewed: Labs reviewed by me, Image(s) reviewed by me Assessment/Plan Assessment/Plan Impression: -diabetic ketoacidosis -severe metabolic acidosis -acute kidney injury, vasomotor nephropathy -leukocytosis, rule out sepsis -obesity -depression -dyslipidemia -peripheral neuropathy -hyperkalemia -acute hypoxic respiratory failure Plan: Events: No events overnight. Acidosis improving. -continue new IV fluids of D5 LR with one amp of sodium bicarbonate -empiric antibiotic therapy with Zosyn -blood and urine culture : Pending -insulin drip -K-Phos replacement -BMP q.6 hours -Depakote level: Subtherapeutic -UDS: Negative -serial BMP -patient remains unstable to transfer to [facility]. Persistent acidosis, now with tachycardia. Critical care time spent with patient discussing and formulating plan of care: 40 minutes. This does not include time spent performing procedures. This medical document was created using an electronic medical record system with bVisual computerized dictation system. Although this document has been carefully reviewed, there may still be some phonetic and typographical errors. These areas are purely typographical due to imperfections of the software programs, and do not reflect any compromise in the patient's medical care. Plan discussed with: Patient, Other (RN) My Orders Orders - MARCEL RUFFIN NP Procedure Category Date Status Time Admit ADMIT 12/17/24 Transmitted 17:41 Nitroglycerin PHA 12/17/24 In Process Sublingual (Ntrostat 17:45 Morphine Sulfate PHA 12/17/24 In Process Injection 17:45 Stat Ekg For Chest JAVIER 12/17/24 In Process Pain 17:41 Notify Md Of Changes JAVIER 12/17/24 In Process From Base 17:41 Global Program Manager For JAVIER 12/17/24 In Process 24 Hours 17:41 Emergency Dysrhythmia JAVIER 12/17/24 In Process Protocol 17:41 Rhythm Strips Once JAVIER 12/17/24 In Process Every Shift 17:41 Oxygen By Nasal RT 12/17/24 Transmitted Cannula 17:41 Basic Metabolic Panel LAB 12/18/24 Logged 13:00 Urine Bacterial JANIE 12/17/24 In Process Culture 17:41 Venous Blood Gas RT 12/17/24 Logged 19:00 Venous Blood Gas RT 12/18/24 Logged 04:00 Piperacillin-Tazob PHA 12/18/24 In Process 3.375gm (Zosyn 3.375g 00:00 Insulin Drip 100 PHA 12/17/24 In Process Unit/100ml (Myxredlin 22:45 Chest Xray 1 View XY 12/18/24 Resulted 05:16 Potassium Phosphate PHA 12/18/24 In Process 07:15 Basic Metabolic Panel LAB 12/19/24 Verified 04:00 Magnesium LAB 12/19/24 Verified 04:00 Phosphorus LAB 12/19/24 Verified 04:00 Complete Blood Count LAB 12/19/24 Verified 04:00 Complete Blood Count LAB 12/18/24 Logged 13:00 * Linen Room Supervisor CONS 12/18/24 Transmitted Consult Insert Midline ORDERS 12/18/24 Verified 07:41 Date of Service: Dec 18, 2024 Billing Provider: MARCEL RUFFIN NP Common Visit Codes: [id number] CARE 30-74 MIN MARCEL RUFFIN TOOL AND DIE MANAGER Dec 18, 2024 07:46
[2024-12-18] MEDS: POTASSIUM PHOSPHATE 44 MEQ in D5W 5% 250 ML IV ONE (08:44)
[2024-12-18 13:35] LABS: Basophils # (auto) 0 10 ^3/uL (0-0.2); Basophils % (auto) 0.2 % (0.0-2.0); Eosinophils # (auto) 0 10 ^3/uL (0-0.8); Hematocrit 42.6 % (36.0-46.0); Hemoglobin 13.8 g/dL (12.2-16.2); Lymphocytes # (auto) 0.6 10 ^3/uL (0.4-5.4); Mean Corpuscular Hemoglobin 29.6 pg (28.0-32.0); Mean Corpuscular Hgb Conc. 32.3 g/dL (32.0-36.0); Mean Corpuscular Volume 91.6 fL (80.0-100.0); Monocytes # (auto) 1.4 10 ^3/uL (0-1.3); Neutrophils # (auto) 13.5 10 ^3/uL (1.6-8.6); Neutrophils % (auto) 86.8 % (37.0-80.0); Platelet Count (auto) 254 10^3/uL (140-450); Red Blood Cells 4.65 10^6/uL (4.0-5.20); Red Cell Distribution Width 13.7 % (11.8-14.3); White Blood Cell 15.5 10^3/uL (4.4-10.8)
[2024-12-18 13:47] LABS: Potassium 3.5 mmol/L (3.5-5.1); Sodium 137 mmol/L (136-145)
[2024-12-18 13:48] LABS: Anion Gap 14 (5-15)
[2024-12-18 13:49] LABS: Carbon Dioxide 16 mmol/L (20-31); Chloride 107 mmol/L (98-107)
[2024-12-18 13:53] LABS: Calcium 8.3 mg/dL (8.7-10.4)
[2024-12-18 13:54] LABS: BUN/Creatinine Ratio 14.6 (10.0-20.0); Blood Urea Nitrogen 33 mg/dL (9-23); Glucose 232 mg/dL (74-106)
[2024-12-18] MEDS: LABETALOL HCL 20 MG/4 ML VL IV PRN (13:57)
[2024-12-18] MEDS ORDERED: DEXTROSE (50%) 50ML SYRG IV PRN (15:15)
[2024-12-18] MEDS: INSULIN LANTUS (GLARGINE) 1 /0.01ml (100units/ml) SC ONE (15:41)
[2024-12-18] MEDS: POTASSIUM EFFERVESENT TAB 25 MEQ PO ONE (15:41)
[2024-12-18] MEDS: SOD CHL 0.45% 1,000 ML IV SCH (15:42)
[2024-12-18] MEDS: ACETAMINOPHEN 325 MG TAB PO ONE (16:02)
[2024-12-18] MEDS: ACCU-CHEK COMFORT CURVE STRIP VI SCH (16:03)
[2024-12-18] MEDS: InsuLIN REG 1unit/0.01ml Soln (100units/ml) SC SCH (16:15)
[2024-12-18] MEDS: hydrALAZINE HCL 20 MG/ML VL IV ONE (20:18)
[2024-12-18] MEDS: ACETAMINOPHEN 325 MG TAB PO PRN (21:11)
[2024-12-19] VITALS (26 sets, daily range): BP systolic 131–185; BP diastolic 40–69; PULSE 90–108; RESP 17–33; TEMP 97.6–99.1; O2SAT 92–99
[2024-12-19 04:39] LABS: Basophils # (auto) 0.1 10 ^3/uL (0-0.2); Basophils % (auto) 0.6 % (0.0-2.0); Eosinophils # (auto) 0 10 ^3/uL (0-0.8); Hemoglobin 14.4 g/dL (12.2-16.2); Lymphocytes # (auto) 0.7 10 ^3/uL (0.4-5.4); Lymphocytes % (auto) 6.6 % (10.0-50.0); Mean Corpuscular Hemoglobin 29.7 pg (28.0-32.0); Mean Corpuscular Hgb Conc. 32.7 g/dL (32.0-36.0); Mean Corpuscular Volume 90.7 fL (80.0-100.0); Monocytes # (auto) 0.5 10 ^3/uL (0-1.3); Monocytes % (auto) 4.2 % (0.0-12.0); Neutrophils % (auto) 88.6 % (37.0-80.0); Nucleated Red Blood Cells % 0.1 %; Platelet Count (auto) 266 10^3/uL (140-450); Red Blood Cells 4.85 10^6/uL (4.0-5.20); White Blood Cell 11.2 10^3/uL (4.4-10.8)
[2024-12-19 04:49] LABS: Chloride 106 mmol/L (98-107); Potassium 3.5 mmol/L (3.5-5.1)
[2024-12-19 04:50] LABS: Anion Gap 16 (5-15)
[2024-12-19 04:55] LABS: BUN/Creatinine Ratio 19.8 (10.0-20.0)
[2024-12-19 04:56] LABS: Magnesium 1.7 mg/dL (1.6-2.6)
[2024-12-19 04:57] LABS: Phosphorus 4.2 mg/dL (2.4-5.1)
[2024-12-19 05:10] LABS: Blood Urea Nitrogen 52 mg/dL (9-23); Calcium 8.2 mg/dL (8.7-10.4); Carbon Dioxide 14 mmol/L (20-31); Sodium 136 mmol/L (136-145)
[2024-12-19 05:13] LABS: Glucose 414 mg/dL (74-106)
[2024-12-19] MEDS: SODIUM CHLORIDE 0.9% 1,000 ML IV ONE (06:30)
[2024-12-19] MEDS: InsuLIN REG 1unit/0.01ml Soln (100units/ml) SC SCH (08:32)
--- NOTE | 2024-12-19 08:54 | DVHDS2 ---
Discharge Summary Date of Admission Dec 17, 2024 at 17:41 Date of Discharge: Dec 19, 2024 Admitting Diagnosis Diabetic ketoacidosis Labs/Diagnostic Data: Laboratory Results Test 12/19/24 08:24 12/19/24 04:25 12/18/24 13:31 12/18/24 04:35 POC Glucose 377 mg/dl (70-106) White Blood Count 11.2 10^3/uL (4.4-10.8) Red Blood Count 4.85 10^6/uL (4.0-5.20) Hemoglobin 14.4 g/dL (12.2-16.2) Hematocrit 44.0 % (36.0-46.0) Mean Corpuscular Volume 90.7 fL (80.0-100.0) Mean Corpuscular Hemoglobin 29.7 pg (28.0-32.0) Mean Corpuscular Hemoglobin Concent 32.7 g/dL (32.0-36.0) Red Cell Distribution Width 14.0 % (11.8-14.3) Platelet Count 266 10^3/uL (140-450) Mean Platelet Volume 8.2 fL (6.9-10.8) Neutrophils (%) (Auto) 88.6 % (37.0-80.0) Lymphocytes (%) (Auto) 6.6 % (10.0-50.0) Monocytes (%) (Auto) 4.2 % (0.0-12.0) Eosinophils (%) (Auto) 0.0 % (0.0-7.0) Basophils (%) (Auto) 0.6 % (0.0-2.0) Neutrophils # (Auto) 10.0 10 ^3/uL (1.6-8.6) Lymphocytes # (Auto) 0.7 10 ^3/uL (0.4-5.4) Monocytes # (Auto) 0.5 10 ^3/uL (0-1.3) Eosinophils # (Auto) 0 10 ^3/uL (0-0.8) Basophils # (Auto) 0.1 10 ^3/uL (0-0.2) Nucleated Red Blood Cells 0.1 % Sodium Level 136 mmol/L (136-145) Potassium Level 3.5 mmol/L (3.5-5.1) Chloride Level 106 mmol/L (98-107) Carbon Dioxide Level 14 mmol/L (20-31) Anion Gap 16 (5-15) Blood Urea Nitrogen 52 mg/dL (9-23) Creatinine 2.62 mg/dL (0.550-1.02) Glomerular Filtration Rate Calc 22 mL/min (>90) BUN/Creatinine Ratio 19.8 (10.0-20.0) Serum Glucose 414 mg/dL (74-106) Calcium Level 8.2 mg/dL (8.7-10.4) Phosphorus Level 4.2 mg/dL (2.4-5.1) Magnesium Level 1.7 mg/dL (1.6-2.6) Hemoglobin A1c 13.2 % A1C (<5.7) Blood Gas Specimen Type Arterial Blood Gas Sample Site Left brachial Blood Gas Patient Temperature 37.0 Arterial Blood Date Drawn [id number] Arterial Blood pH 7.213 (7.350-7.450) Arterial Blood Partial Pressure CO2 26.4 mmHg (32.0-45.0) Arterial Blood Partial Pressure O2 65.6 mmHg (83.0-108.0) Arterial Blood HCO3 10.4 mmol/L (21.0-28.0) Arterial Blood Oxygen Saturation 94.0 % (94.0-98.0) Arterial Blood Base Excess -15.7 mmol/L (-2.0-3.0) Arterial Blood Oxyhemoglobin 92.8 % (94.0-98.0) Arterial Blood Carboxyhemoglobin 0.8 % (0.5-1.5) Arterial Blood Methemoglobin 0.5 % (0.0-1.5) Hayden Test Yes Blood Gas Total Hemoglobin 14.40 g/dL (12.0-16.0) Blood Gas Modality Room air FiO2 % 21.0 Specimen Drawn By Blood Gas Comments Blood Gas Critical Value Read Back Yes Blood Gas Notified Whom tobias Cavazos md Blood Gas Notified Time [id number] Blood Gas Notified By Test 12/18/24 04:21 12/17/24 18:54 12/17/24 18:38 12/17/24 16:00 Venous Blood pH 7.115 (7.320-7.430) Venous Blood pCO2 at Patient Temp 28.8 mmHg (38.0-54.0) Venous Blood pO2 at Patient Temp < 36.5 mmHg (23.0-48.0) Venous Blood HCO3 9.0 mmol/L (22.0-29.0) Venous Bld O2 Saturation (Measured) 69.4 % (60.0-85.0) Venous Blood Base Excess -19.0 mmol/L (-2.0-3.0) Venous Blood Total Hemoglobin 16.2 g/dL (12.0-16.0) Venous Blood Oxyhemoglobin 68.4 % (0.0-79.0) Venous Blood Carboxyhemoglobin 1.0 % (0.5-1.5) Venous Blood Methemoglobin 0.5 % (0.0-1.5) Beta-Hydroxybutyric Acid > 4.500 mmol/L (< 0.4) Valproic Acid Level < 3.0 ug/mL (50-100) Urine Color Light-yellow (Yellow) Urine Clarity Clear (Clear) Urine pH 5.0 (5.0-9.0) Urine Specific [place] 1.017 (1.001-1.035) Urine Protein 1+ (Negative) Urine Ketones 3+ (Negative) Urine Blood Negative /uL (Negative) Urine Nitrite Negative (Negative) Urine Bilirubin Negative (Negative) Urine Urobilinogen Normal mg/dL (Negative) Urine Leukocyte Esterase Negative /uL (Negative) Urine RBC <1 /hpf (0 - 4) Urine Microscopic WBC < 1 /HPF (0-5) Urine Squamous Epithelial Cells Few /hpf (<5) Urine Bacteria Few /hpf (None Seen) Urine Yeast (Budding) Occasional /hpf (None Urine Glucose 4+ mg/dL (Normal) Urine Test Negative (Negative) Urine Opiates Screen Neg (NEGATIVE) Urine Fentanyl Screen Neg (NEGATIVE) Urine Barbiturates Screen Neg (NEGATIVE) Urine Phencyclidine Screen Neg (NEGATIVE) Urine Amphetamines Screen Neg (NEGATIVE) Urine Benzodiazepines Screen Neg (NEGATIVE) Urine Cocaine Screen Neg (NEGATIVE) Urine Cannabinoids Screen Neg (NEGATIVE) Lactic Acid Level 2.1 mmol/L (0.4-2.0) Troponin I High Sensitivity 3 ng/L (</=34) Test 12/17/24 15:01 12/17/24 13:45 Blood Gas Liter Flow 0.00 Serum Osmolality 332 mOsm/kg (278-298) Total Bilirubin 0.2 mg/dL (0.2-1.0) Aspartate Amino Transferase (AST) 50 U/L (13-40) Alanine Aminotransferase (ALT) 42 U/L (7-40) Alkaline Phosphatase 123 U/L (46-116) B-Type Natriuretic Peptide 11.22 pg/mL (0-100) Total Protein 6.4 g/dL (5.7-8.2) Albumin 4.2 g/dL (3.2-4.8) Lipase 38 U/L (12-53) Other Laboratory Tests 12/19/24 04:25 Brief Hx & Hospital Course: History of Present Illness Patient was a 49-year-old female presenting to the emergency room with altered mental status. According to the patient's family was bedside, the patient has not been feeling good for the past several days including generalized weakness, in addition to not eating well as well as not taking her insulin because she has been eating well. Today they found her with severe tachypnea, altered mental status which prompted them to bring her to the hospital. Patient at this time continues to have altered mental status, but does track to voice, and nods to simple commands. The family is unable to report any other symptoms. Significant history of the patient includes juvenile diabetes mellitus, in addition to the family stating she was never been hospitalized for diabetic ketoacidosis. She also has a history of depression, heart murmur, fibromyalgia, and peripheral neuropathy. Course of hospitalization: Patient was started on insulin drip per protocol, cover with empiric antibiotic therapy with Zosyn given her elevated white blood cell count. Patient was extremely altered on the day of admission, now A&O x4. Patient has been weaned off of insulin drip and transitioned to long-acting insulin, Lantus as well as aggressive sliding scale. Patient was noted to have worsening renal function, acute kidney injury, but making urine at this time. Nephrology consultation is currently pending. Patient was tolerating oral intake, but does have some residual nausea. Now that the patient was alert with the patient was able to describe that she has been feeling weak, with polydipsia and polyuria since the previous Monday prior to being admitted in the hospital. Hemoglobin A1c was found to be 13.2. Patient states that her primary care provider has changed her antidiabetic medications and her blood sugars have been uncontrolled since. Patient was now stable to be transferred to [facility], for which and spoke with the patient and family's wishes for to be transferred. She will be continued with IV hydration, as well as glycemic control. Recommend to continue acute care hospitalization until renal function improves as well as her diabetes mellitus is stabilized. Physical examination General: Alert and Oriented x3. No acute distress. Well-nourished. Obese Eyes: EOMI. Anicteric. HENT: Moist mucous membranes. Lungs: Clear to auscultation bilaterally. No accessory muscle use. Cardiovascular: Regular rate and rhythm. No murmur. No JVD. Abdomen: Soft, non-tender and non-distended. No palpable masses. Extremities: No edema. Non-tender. Skin: No rashes or lesions. Warm. Neurologic: No focal neurological deficits. CN II-XII grossly intact, but not individually tested. Psychiatric: Cooperative. Appropriate mood and affect. Total time spent with patient discussing and formulating plan of care: 35 minutes. This medical document was created using an electronic medical record system with Active DSP dictation system. Although this document has been carefully reviewed, there may still be some phonetic and typographical errors. These areas are purely typographical due to imperfections of the software programs, and do not reflect any compromise in the patient's medical care. Consults/Reason for consult Nephrology: Acute kidney injury Condition at Discharge: Guarded Final Diagnosis/Problems List DKA Secondary diagnosis: -severe metabolic acidosis -acute kidney injury, vasomotor nephropathy -leukocytosis, rule out sepsis -obesity -depression -dyslipidemia -peripheral neuropathy -hyperkalemia -acute hypoxic respiratory failure Discharge Disposition: Acute Care Facility Discharge Instruct/Medications Diet: Consistent carbohydrate Activity: No Restrictions, As Tolerated Follow Up/Referral: Per accepting provider Medications: See Medication reconciliation form 36 Discharge Statement: "Patient was advised to return to the ER or call 911 if any headaches, dizziness, shortness of breath, chest pain, abdominal pain, bleeding, fevers, or worsening of medical condition. Patient was counseled about treatment plan, medications, possible side effects, patientverbalized understanding. All questions were answered to the best of my ability. This discharge took greater then 30 minutes in planning, reviewing documentation, counseling the patient, and discussing with other team members." ASSESSMENT ASSESSMENT Assessment DKA Date of Service: Dec 19, 2024 Billing Provider: MARCEL RUFFIN NP Common Visit Codes: [id number] DISCH DAY >30min MARCEL RUFFIN NP Dec 19, 2024 08:54
[2024-12-19] MEDS: LACTATED RINGER'S 1,000 ML IV ONE (08:58)
[2024-12-19] MEDS ORDERED: INSULIN LANTUS (GLARGINE) 1 /0.01ml (100units/ml) SC SCH (10:00)
[2024-12-19] MEDS: INSULIN LANTUS (GLARGINE) 1 /0.01ml (100units/ml) SC SCH (10:36)
[2024-12-19] MEDS: FUROSEMIDE 40 MG/4 ML VIAL IV ONE (10:44)
[2024-12-19] MEDS: METOPROLOL TARTRATE 25 MG TAB PO SCH (10:44)
--- NOTE | 2024-12-19 10:52 | DVH ---
US KIDNEY HISTORY: jeremy COMPARISON: None TECHNIQUE: Transverse and longitudinal grayscale and color Doppler images were obtained of the kidney s and bladder. FINDINGS: Right kidney: Size: 12.9 cm Cortical thickness: Normal Echogenicity: Normal Stones: None Masses: 3.1 cm lower pole cyst. Hydronephrosis: None Ureters: Not well visualized. Other: None Left kidney: Size: 13.2 cm Cortical thickness: Normal Echogenicity: Normal Stones: None Masses: None Hydronephrosis: None Ureters: Not well visualized. Other: None Bladder: Schafer is seen. Other: None. IMPRESSION: Unremarkable renal ultrasound.
[2024-12-19] MEDS: cefTRIAXone 1GM/50ML D5W 50 ML IV SCH (10:53)
--- NOTE | 2024-12-19 10:57 | DVHINCON2 ---
Date of service: Dec 19, 2024 Referring Physician francisco javier Reason for Consultation DOUGLAS History of Present Illness 49 years old past history diabetes , hypertension, dyslipidemia, Chronic kidney disease, obesity presented with chief complaints of altered mental status patient found to be in diabetic ketoacidosis per currently being treated for DKA patient's daughter is at bedside she complains of nausea today denies any other complaints other than feeling weakness Past Medical History As documented in HPI Allergies: Coded Allergies: NO KNOWN ALLERGIES (Unverified , 12/17/24) Home Meds Reported Medications Trazodone Hcl (Trazodone Hcl) 50 Mg Tab, 1 TAB PO DAILY for 30 Days, #30 12/18/24 Lisinopril (Lisinopril) 20 Mg Tab, 1 TAB PO DAILY for 100 Days, #100 12/18/24 Metformin Hydrochloride (Metformin Hcl) 1,000 Mg Tab, 1 TAB PO BID for 100 Days, #200 12/18/24 Venlafaxine Hcl (Venlafaxine Hcl Er) 150 Mg Cap, 1 CAP PO DAILY for 30 Days, #30 12/18/24 Venlafaxine Hcl (Venlafaxine Hcl Er) 75 Mg Cap, 1 CAP PO DAILY for 30 Days, #30 12/18/24 Rosuvastatin Calcium (Rosuvastatin Calcium) 20 Mg Tab, 1 TAB PO DAILY for 100 Days, #100 12/18/24 Hydrocodone-Acetaminophen (Hydrocodone Bitartrate/AC 10-325 mg) 1 Tab Tab, 1 TAB PO QID PRN for 30 Days, #120 12/18/24 Current Medications Current Medications Medications (Trade) Dose Ordered Sig/Danny Route PRN Reason Start Time Stop Time Status Last Admin Labetalol HCl (Labetalol HCl) 10 mg Q2HPRN PRN IV SBP>150 12/18/24 13:45 12/18/24 22:07 Diagnostic Test (Pha) (Accu-Chek Comfort Curve T) 1 strip IQ4HR 12/18/24 16:00 12/19/24 08:26 Insulin Human Regular (InsuLIN R) IQ4HR SC 12/18/24 16:00 12/19/24 05:51 DC 12/19/24 03:37 Dextrose 50 ml UD PRN IV Blood Sugar LESS THAN 60 12/18/24 15:15 Insulin Glargine (Lantus) 15 units DAILY@1000 SC 12/19/24 10:00 12/19/24 08:26 DC Sodium Chloride 1,000 ml @ 100 mls/hr Q10H IV 12/18/24 15:15 12/19/24 09:51 DC 12/19/24 03:01 Acetaminophen (Tylenol Tablet) 650 mg Q6HP PRN PO TEMP GREATER THAN 100.4 12/18/24 15:45 12/18/24 21:11 Insulin Human Regular (InsuLIN R) IQ4HR SC 12/19/24 08:00 12/19/24 08:32 Insulin Glargine (Lantus) 25 units DAILY@1000 SC 12/19/24 10:00 12/19/24 10:36 Ceftriaxone Sodium 50 ml @ 100 mls/hr DAILY@09 IV 12/19/24 09:00 12/19/24 10:53 Metoprolol Tartrate (Lopressor Tablet) 25 mg BID PO 12/19/24 10:00 12/19/24 10:44 Sodium Bicarbonate 75 ml/ Sodium Chloride 1,075 ml @ 75 mls/hr [id number] IV 12/19/24 10:00 Family History: Alcoholism G8 BROTHER Arthritis G8 MOTHER G8 FATHER G8 BROTHER Cardiovascular disease G8 FATHER Depression G8 MOTHER Diabetes mellitus G8 MOTHER G8 FATHER G8 BROTHER Hypertension G8 FATHER G8 BROTHER Review of Systems As per HPI H&P Exam Vital Signs/I&O Vital Sign Date Time Temp Pulse Resp B/P (MAP) Pulse Ox O2 Delivery O2 Flow Rate FiO2 12/19/24 10:44 164/60 12/19/24 10:44 107 12/19/24 08:00 97.9 19 96 97.9 12/19/24 08:00 Room Air* 0 21 Intake and Output 12/18/24 12/19/24 19:00 07:00 Intake Total 1835.0 ml 1300 ml Output Total 500 ml Balance 1335.0 ml 1300 ml Intake Oral 120 ml IV Total 1715.0 ml 1300 ml Output Urine Total 500 ml Physical Exam General-not in any distress HEENT-normocephalic, no icterus, no pallor, neck supple Respiratory-fair air entry bilateral, no rhonchi, no wheeze [id number] heard, no murmurs appreciated Abdominal-soft, nontender, nondistended Musculoskeletal-trace pedal edema, no calf tenderness Genitourinary-deferred Neuro-awake alert oriented x3, Psychiatric-not agitated, cooperative, Labs/Diagnostic Data Labs/Diagnostic Data Laboratory Tests Test 12/19/24 10:29 12/19/24 08:24 12/19/24 04:25 12/19/24 03:33 Range/Units POC Glucose 382 H 377 H 372 H 70-106 mg/dl White Blood Count 11.2 #H 4.4-10.8 10^3/uL Red Blood Count 4.85 4.0-5.20 10^6/uL Hemoglobin 14.4 12.2-16.2 g/dL Hematocrit 44.0 36.0-46.0 % Mean Corpuscular Volume 90.7 80.0-100.0 fL Mean Corpuscular Hemoglobin 29.7 28.0-32.0 pg Mean Corpuscular Hemoglobin Concent 32.7 32.0-36.0 g/dL Red Cell Distribution Width 14.0 11.8-14.3 % Platelet Count 266 140-450 10^3/uL Mean Platelet Volume 8.2 6.9-10.8 fL Neutrophils (%) (Auto) 88.6 H 37.0-80.0 % Lymphocytes (%) (Auto) 6.6 L 10.0-50.0 % Monocytes (%) (Auto) 4.2 0.0-12.0 % Eosinophils (%) (Auto) 0.0 0.0-7.0 % Basophils (%) (Auto) 0.6 0.0-2.0 % Neutrophils # (Auto) 10.0 H 1.6-8.6 10 ^3/uL Lymphocytes # (Auto) 0.7 0.4-5.4 10 ^3/uL Monocytes # (Auto) 0.5 0-1.3 10 ^3/uL Eosinophils # (Auto) 0 0-0.8 10 ^3/uL Basophils # (Auto) 0.1 0-0.2 10 ^3/uL Nucleated Red Blood Cells 0.1 % Sodium Level 136 136-145 mmol/L Potassium Level 3.5 3.5-5.1 mmol/L Chloride Level 106 98-107 mmol/L Carbon Dioxide Level 14 L 20-31 mmol/L Anion Gap 16 H 5-15 Blood Urea Nitrogen 52 #H 9-23 mg/dL Creatinine 2.62 H 0.550-1.02 mg/dL Glomerular Filtration Rate Calc 22 >90 mL/min BUN/Creatinine Ratio 19.8 10.0-20.0 Serum Glucose 414 *H 74-106 mg/dL Calcium Level 8.2 L 8.7-10.4 mg/dL Phosphorus Level 4.2 2.4-5.1 mg/dL Magnesium Level 1.7 1.6-2.6 mg/dL Test 12/18/24 23:31 12/18/24 20:05 12/18/24 16:11 12/18/24 15:12 Range/Units POC Glucose 315 H 217 H 224 H 199 H 70-106 mg/dl Test 12/18/24 13:40 12/18/24 13:31 12/18/24 13:16 12/18/24 11:54 Range/Units POC Glucose 209 H 224 H 70-106 mg/dl Hemoglobin A1c 13.2 H <5.7 % A1C White Blood Count 15.5 H 4.4-10.8 10^3/uL Red Blood Count 4.65 4.0-5.20 10^6/uL Hemoglobin 13.8 12.2-16.2 g/dL Hematocrit 42.6 # 36.0-46.0 % Mean Corpuscular Volume 91.6 # 80.0-100.0 fL Mean Corpuscular Hemoglobin 29.6 28.0-32.0 pg Mean Corpuscular Hemoglobin Concent 32.3 32.0-36.0 g/dL Red Cell Distribution Width 13.7 11.8-14.3 % Platelet Count 254 140-450 10^3/uL Mean Platelet Volume 7.5 6.9-10.8 fL Neutrophils (%) (Auto) 86.8 H 37.0-80.0 % Lymphocytes (%) (Auto) 4.0 L 10.0-50.0 % Monocytes (%) (Auto) 9.0 0.0-12.0 % Eosinophils (%) (Auto) 0.0 0.0-7.0 % Basophils (%) (Auto) 0.2 0.0-2.0 % Neutrophils # (Auto) 13.5 H 1.6-8.6 10 ^3/uL Lymphocytes # (Auto) 0.6 0.4-5.4 10 ^3/uL Monocytes # (Auto) 1.4 H 0-1.3 10 ^3/uL Eosinophils # (Auto) 0 0-0.8 10 ^3/uL Basophils # (Auto) 0 0-0.2 10 ^3/uL Nucleated Red Blood Cells 0.0 % Sodium Level 137 136-145 mmol/L Potassium Level 3.5 3.5-5.1 mmol/L Chloride Level 107 98-107 mmol/L Carbon Dioxide Level 16 L 20-31 mmol/L Anion Gap 14 5-15 Blood Urea Nitrogen 33 H 9-23 mg/dL Creatinine 2.26 H 0.550-1.02 mg/dL Glomerular Filtration Rate Calc 26 >90 mL/min BUN/Creatinine Ratio 14.6 10.0-20.0 Serum Glucose 232 H 74-106 mg/dL Calcium Level 8.3 L 8.7-10.4 mg/dL Test 12/18/24 10:54 12/18/24 09:19 12/18/24 07:25 12/18/24 05:57 Range/Units POC Glucose 206 H 217 H 193 H 180 H 70-106 mg/dl Test 12/18/24 04:35 12/18/24 04:32 12/18/24 04:21 12/18/24 04:15 Range/Units Blood Gas Specimen Type Arterial Venous Blood Gas Sample Site Left brachial Vbg - n/a Blood Gas Patient Temperature 37.0 37.0 Arterial Blood Date Drawn [id number] Arterial Blood pH 7.213 *L 7.350-7.450 Arterial Blood Partial Pressure CO2 26.4 L 32.0-45.0 mmHg Arterial Blood Partial Pressure O2 65.6 L 83.0-108.0 mmHg Arterial Blood HCO3 10.4 L 21.0-28.0 mmol/L Arterial Blood Oxygen Saturation 94.0 94.0-98.0 % Arterial Blood Base Excess -15.7 L -2.0-3.0 mmol/L Arterial Blood Oxyhemoglobin 92.8 L 94.0-98.0 % Arterial Blood Carboxyhemoglobin 0.8 0.5-1.5 % Arterial Blood Methemoglobin 0.5 0.0-1.5 % Hayden Test Yes N/a Blood Gas Total Hemoglobin 14.40 12.0-16.0 g/dL Blood Gas Modality Room air Room air FiO2 % 21.0 21.0 Specimen Drawn By Lab Blood Gas Comments Blood Gas Critical Value Read Back Yes Yes Blood Gas Notified Whom tobias Cavazos md, jose np Blood Gas Notified Time [id number] Blood Gas Notified By POC Glucose 193 H 70-106 mg/dl Venous Blood pH 7.115 *L 7.320-7.430 Venous Blood pCO2 at Patient Temp 28.8 L 38.0-54.0 mmHg Venous Blood pO2 at Patient Temp < 36.5 23.0-48.0 mmHg Venous Blood HCO3 9.0 L 22.0-29.0 mmol/L Venous Bld O2 Saturation (Measured) 69.4 60.0-85.0 % Venous Blood Base Excess -19.0 L -2.0-3.0 mmol/L Venous Blood Total Hemoglobin 16.2 H 12.0-16.0 g/dL Venous Blood Oxyhemoglobin 68.4 0.0-79.0 % Venous Blood Carboxyhemoglobin 1.0 0.5-1.5 % Venous Blood Methemoglobin 0.5 0.0-1.5 % Sodium Level 133 L 136-145 mmol/L Potassium Level 4.1 3.5-5.1 mmol/L Chloride Level 107 98-107 mmol/L Carbon Dioxide Level < 10 *L 20-31 mmol/L Anion Gap 16.43683 H 5-15 Blood Urea Nitrogen 34 H 9-23 mg/dL Creatinine 2.03 H 0.550-1.02 mg/dL Glomerular Filtration Rate Calc 30 >90 mL/min BUN/Creatinine Ratio 16.7 10.0-20.0 Serum Glucose 225 H 74-106 mg/dL Calcium Level 8.8 8.7-10.4 mg/dL Phosphorus Level 1.2 L 2.4-5.1 mg/dL Magnesium Level 1.7 1.6-2.6 mg/dL Test 12/18/24 02:59 12/18/24 02:00 12/18/24 01:33 12/18/24 00:01 Range/Units POC Glucose 217 H 320 H 400 H 70-106 mg/dl Sodium Level 132 L 136-145 mmol/L Potassium Level 4.1 3.5-5.1 mmol/L Chloride Level 106 98-107 mmol/L Carbon Dioxide Level < 10 *L 20-31 mmol/L Anion Gap 16.65148 H 5-15 Blood Urea Nitrogen 35 H 9-23 mg/dL Creatinine 1.90 #H 0.550-1.02 mg/dL Glomerular Filtration Rate Calc 32 >90 mL/min BUN/Creatinine Ratio 18.4 10.0-20.0 Serum Glucose 306 H 74-106 mg/dL Calcium Level 8.3 L 8.7-10.4 mg/dL Test 12/17/24 22:36 12/17/24 21:05 12/17/24 20:08 12/17/24 19:10 Range/Units POC Glucose 439 *H 433 *H 494 *H 70-106 mg/dl Test 12/17/24 18:54 12/17/24 18:38 12/17/24 18:14 12/17/24 17:09 Range/Units Sodium Level 129 L 136-145 mmol/L Potassium Level 4.9 3.5-5.1 mmol/L Chloride Level 104 98-107 mmol/L Carbon Dioxide Level < 10 *L 20-31 mmol/L Anion Gap 15.27046 H 5-15 Blood Urea Nitrogen 26 H 9-23 mg/dL Creatinine 1.39 H 0.550-1.02 mg/dL Glomerular Filtration Rate Calc 47 >90 mL/min BUN/Creatinine Ratio 18.7 10.0-20.0 Serum Glucose 613 *H 74-106 mg/dL Calcium Level 7.5 L 8.7-10.4 mg/dL Phosphorus Level 4.1 2.4-5.1 mg/dL Magnesium Level 1.9 1.6-2.6 mg/dL Beta-Hydroxybutyric Acid > 4.500 H < 0.4 mmol/L Valproic Acid Level < 3.0 L 50-100 ug/mL Urine Color Light-yellow Yellow Urine Clarity Clear Clear Urine pH 5.0 5.0-9.0 Urine Specific [place] 1.017 1.001-1.035 Urine Protein 1+ H Negative Urine Ketones 3+ H Negative Urine Blood Negative Negative /uL Urine Nitrite Negative Negative Urine Bilirubin Negative Negative Urine Urobilinogen Normal Negative mg/dL Urine Leukocyte Esterase Negative Negative /uL Urine RBC <1 0 - 4 /hpf Urine Microscopic WBC < 1 0-5 /HPF Urine Squamous Epithelial Cells Few <5 /hpf Urine Bacteria Few H None Seen /hpf Urine Yeast (Budding) Occasional None Seen /hpf Urine Glucose 4+ H Normal mg/dL Urine Test Negative Negative Urine Opiates Screen Neg NEGATIVE Urine Fentanyl Screen Neg NEGATIVE Urine Barbiturates Screen Neg NEGATIVE Urine Phencyclidine Screen Neg NEGATIVE Urine Amphetamines Screen Neg NEGATIVE Urine Benzodiazepines Screen Neg NEGATIVE Urine Cocaine Screen Neg NEGATIVE Urine Cannabinoids Screen Neg NEGATIVE POC Glucose 590 *H 578 *H 70-106 mg/dl Test 12/17/24 16:00 12/17/24 15:35 12/17/24 15:01 12/17/24 14:48 Range/Units Lactic Acid Level 2.1 *H 0.4-2.0 mmol/L Troponin I High Sensitivity 3 L 3 L </=34 ng/L POC Glucose > 600 *H 70-106 mg/dl Blood Gas Specimen Type Arterial Blood Gas Sample Site Right radial Blood Gas Patient Temperature 37.0 Arterial Blood Date Drawn [id number] Arterial Blood pH 6.815 *L 7.350-7.450 Arterial Blood Partial Pressure CO2 13.5 *L 32.0-45.0 mmHg Arterial Blood Partial Pressure O2 134.4 H 83.0-108.0 mmHg Arterial Blood HCO3 2.1 L 21.0-28.0 mmol/L Arterial Blood Oxygen Saturation 97.9 94.0-98.0 % Arterial Blood Base Excess -31.4 L -2.0-3.0 mmol/L Arterial Blood Oxyhemoglobin 96.9 94.0-98.0 % Arterial Blood Carboxyhemoglobin 0.3 L 0.5-1.5 % Arterial Blood Methemoglobin 0.7 0.0-1.5 % Hayden Test Yes Blood Gas Total Hemoglobin 15.20 12.0-16.0 g/dL Blood Gas Liter Flow 0.00 Blood Gas Modality Room air FiO2 % 21.0 Blood Gas Critical Value Read Back Yes Blood Gas Notified Whom sammi Carlin Blood Gas Notified Time [id number] Blood Gas Notified By enid Abarca Test 12/17/24 14:07 12/17/24 13:45 Range/Units POC Glucose > 600 *H 70-106 mg/dl White Blood Count 20.4 H 4.4-10.8 10^3/uL Red Blood Count 4.81 4.0-5.20 10^6/uL Hemoglobin 14.6 12.2-16.2 g/dL Hematocrit 48.1 H 36.0-46.0 % Mean Corpuscular Volume 100.2 H 80.0-100.0 fL Mean Corpuscular Hemoglobin 30.5 28.0-32.0 pg Mean Corpuscular Hemoglobin Concent 30.4 L 32.0-36.0 g/dL Red Cell Distribution Width 13.9 11.8-14.3 % Platelet Count 383 140-450 10^3/uL Mean Platelet Volume 8.4 6.9-10.8 fL Neutrophils (%) (Auto) 78.7 37.0-80.0 % Lymphocytes (%) (Auto) 13.1 10.0-50.0 % Monocytes (%) (Auto) 7.1 0.0-12.0 % Eosinophils (%) (Auto) 0.1 0.0-7.0 % Basophils (%) (Auto) 1.0 0.0-2.0 % Neutrophils # (Auto) 16.0 H 1.6-8.6 10 ^3/uL Lymphocytes # (Auto) 2.7 0.4-5.4 10 ^3/uL Monocytes # (Auto) 1.5 H 0-1.3 10 ^3/uL Eosinophils # (Auto) 0 0-0.8 10 ^3/uL Basophils # (Auto) 0.2 0-0.2 10 ^3/uL Nucleated Red Blood Cells 0.1 % Sodium Level 127 L 136-145 mmol/L Potassium Level 6.4 *H 3.5-5.1 mmol/L Chloride Level 102 98-107 mmol/L Carbon Dioxide Level < 10 *L 20-31 mmol/L Anion Gap 15.86966 H 5-15 Blood Urea Nitrogen 26 H 9-23 mg/dL Creatinine 1.33 H 0.550-1.02 mg/dL Glomerular Filtration Rate Calc 49 >90 mL/min BUN/Creatinine Ratio 19.5 10.0-20.0 Serum Glucose 642 *H 74-106 mg/dL Serum Osmolality 332 H 278-298 mOsm/kg Lactic Acid Level 2.3 *H 0.4-2.0 mmol/L Calcium Level 8.4 L 8.7-10.4 mg/dL Phosphorus Level 5.0 2.4-5.1 mg/dL Magnesium Level 2.1 1.6-2.6 mg/dL Total Bilirubin 0.2 0.2-1.0 mg/dL Aspartate Amino Transferase (AST) 50 H 13-40 U/L Alanine Aminotransferase (ALT) 42 H 7-40 U/L Alkaline Phosphatase 123 H 46-116 U/L Troponin I High Sensitivity 3 L </=34 ng/L B-Type Natriuretic Peptide 11.22 0-100 pg/mL Total Protein 6.4 5.7-8.2 g/dL Albumin 4.2 3.2-4.8 g/dL Lipase 38 12-53 U/L Beta-Hydroxybutyric Acid > 4.500 H < 0.4 mmol/L Assessment Acute kidney injury on Chronic kidney disease 3A hemodynamic mediated etiology in the setting of DKA Diabetic ketoacidosis Hb A1c greater than 13 Anion gap metabolic acidosis Obesity Hypertension Sirs rule out sepsis Recommendations Switch IV fluids to half NS +75 mEq bicarb Kidney ultrasound Lasix IV one time dose Strict Is&Os she has a Schafer catheter Urine workup as ordered We will follow closely Plan discussed with: Patient, Daughter KHUSHBU GIBBS MD Dec 19, 2024 10:57
[2024-12-19] MEDS: SODIUM BICARB 50mEq/50ml Vial 75 ML in SOD CHL 0.45% 1,000 ML IV SCH (11:05)
[2024-12-19 15:08] LABS: Chloride 105 mmol/L (98-107); Sodium 137 mmol/L (136-145)
[2024-12-19 15:09] LABS: Anion Gap 11 (5-15); Carbon Dioxide 21 mmol/L (20-31)
[2024-12-19 15:14] LABS: BUN/Creatinine Ratio 20.5 (10.0-20.0)
[2024-12-19 15:29] LABS: Blood Urea Nitrogen 50 mg/dL (9-23); Calcium 8.2 mg/dL (8.7-10.4); Glucose 317 mg/dL (74-106); Potassium 2.9 mmol/L (3.5-5.1)
== END 2024-12-19 22:40 | disposition short-term general hospital (02) | DRG 871 ==
LOC: EDBD 13:05 → ER 13:05 → OVERFLOW 17:41 → TELE-EAST 12-19 11:35
PROVIDERS: ADMIT Nurse Practitioner Acute Care; ATTEND Nurse Practitioner Acute Care
PROC: 05HF33Z Insertion of Infusion Device into Left Cephalic Vein, Percutaneous Approach (ICD-10-PCS; principal; 2024-12-18)
PROC: B54NZZA Ultrasonography of Left Upper Extremity Veins, Guidance (ICD-10-PCS; 2024-12-18)
DX: A41.9 Sepsis, unspecified organism (principal); E10.10 Type 1 diabetes mellitus with ketoacidosis without coma; N17.0 Acute kidney failure with tubular necrosis; J96.01 Acute respiratory failure with hypoxia; F32.A Depression, unspecified; E87.5 Hyperkalemia; G62.9 Polyneuropathy, unspecified; E66.9 Obesity, unspecified; I12.9 Hypertensive chronic kidney disease with stage 1 through stage 4 chronic kidney disease, or unspecified chronic kidney disease; E78.5 Hyperlipidemia, unspecified; N18.31 Chronic kidney disease, stage 3a; M79.7 Fibromyalgia; E10.22 Type 1 diabetes mellitus with diabetic chronic kidney disease; Z79.4 Long term (current) use of insulin; Z81.8 Family history of other mental and behavioral disorders; Z82.49 Family history of ischemic heart disease and other diseases of the circulatory system; Z83.3 Family history of diabetes mellitus; Z68.38 Body mass index [BMI] 38.0-38.9, adult
CPT/HCPCS: 36415; 36600; 71045; 76775; 80048; 80053; 80164; 80307; 81001; 81025; 82010; 82805; 82962; 83036; 83605; 83690; 83735; 83880; 83930; 84100; 84484; 85025; 87040; 87086; 93005; 93971; 94640; 99291; G0378; J1815; J2405; J2543; J7060